=== PATIENT | female | born 2000 | race Caucasian/White ===

== ENCOUNTER 2018-10-04 11:53 | Emergency (ER) | payer SELFPAY ==
[2018-10-04] MEDS ORDERED: ONDANSETRON 4 MG (ODT) TAB ONE (13:18)
[2018-10-04 14:03] LABS: Urine Blood NEGATIVE (NEG); Urine Glucose NEGATIVE (NEG); Urine Protein NEGATIVE (NEG); Urine Specific Gravity 1.015 (1.005-1.030)
--- NOTE | 2018-10-04 14:55 | EDPHYS ---
Physician Documentation [facility] Name: Meghan Mendoza Age: 18 yrs Sex: Female : 2000 Arrival Date: 10/04/2018 Time: 11:57 Bed 9 Private MD: ED Physician Ryan Sawant HPI: 10/04 14:00 This 18 yrs old Female presents to ER via Ambulatory with complaints of kb Vomiting. 14:00 The patient presents to the emergency department with nausea, vomiting. Onset: The kb symptoms/episode began/occurred 2 day(s) ago. Possible causes: unknown. The symptoms are aggravated by nothing. The symptoms are alleviated by nothing. Associated signs and symptoms: Pertinent positives:. Severity of symptoms: At their worst the symptoms were moderate in the emergency department the symptoms are unchanged. 14:42 The patient has not experienced similar symptoms in the past. The patient has not kb recently seen a physician. Pt reports she has been taking her neighbor's buspirone 15mg tid for a few weeks, but ran out about a week ago. Would like a refill of that because it helps her anxiety. . 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 - Social history:: Smoking status: Patient/guardian denies using tobacco. - Ebola Screening: : No symptoms or risks identified at this time. ROS: 14:41 Constitutional: Negative for fever, chills, and weight loss, ENT: Negative for injury, kb pain, and discharge, Neck: Negative for injury, pain, and swelling, Cardiovascular: Negative for chest pain, palpitations, and edema, Respiratory: Negative for shortness of breath, cough, wheezing, and pleuritic chest pain, MS/Extremity: Negative for injury and deformity, Skin: Negative for injury, rash, and discoloration, Neuro: Negative for headache, weakness, numbness, tingling, and seizure. 14:41 Abdomen/GI: Positive for nausea and vomiting, Negative for abdominal pain, diarrhea, constipation, abdominal cramps, abdominal distension, anorexia. Exam: 13:59 Constitutional: This is a well developed, well nourished patient who is awake, alert, kb and in no acute distress. Head/Face: Normocephalic, atraumatic. ENT: Nares patent. No nasal discharge, no septal abnormalities noted. Tympanic membranes are normal and external auditory canals are clear. Oropharynx with no redness, swelling, or masses, exudates, or evidence of obstruction, uvula midline. Mucous membranes moist. Neck: Trachea midline, no thyromegaly or masses palpated, and no cervical lymphadenopathy. Supple, full range of motion without nuchal rigidity, or vertebral point tenderness. No Meningismus. Chest/axilla: Normal chest wall appearance and motion. Nontender with no deformity. No lesions are appreciated. Cardiovascular: Regular rate and rhythm with a normal S1 and S2. No gallops, murmurs, or rubs. Normal PMI, no JVD. No pulse deficits. Respiratory: Lungs have equal breath sounds bilaterally, clear to auscultation and percussion. No rales, rhonchi or wheezes noted. No increased work of breathing, no retractions or nasal flaring. Abdomen/GI: Soft, non-tender, with normal bowel sounds. No distension or tympany. No guarding or rebound. No evidence of tenderness throughout. Skin: Warm, dry with normal turgor. Normal color with no rashes, no lesions, and no evidence of cellulitis. MS/ Extremity: Pulses equal, no cyanosis. Neurovascular intact. Full, normal range of motion. Neuro: Awake and alert, GCS 15, oriented to person, place, time, and situation. Cranial nerves II-XII grossly intact. Motor strength 5/5 in all extremities. Sensory grossly intact. Cerebellar exam normal. Normal gait. Vital Signs: 12:17 BP 129 / 87; Pulse 84; Resp 18; Temp 99.0; Pulse Ox 100% on R/A; ph 13:15 BP 121 / 78 LA Supine; Pulse 72; ss 13:15 BP 123 / 71 Sitting; Pulse 68; ss 13:15 BP 116 / 81 LA Standing; Pulse 86; ss MDM: 12:[address] [facility] 13:59 Data reviewed: vital signs, nurses notes. Data interpreted: Pulse oximetry: on room air kb is 100 %. Interpretation: normal. 14:53 Counseling: I had a detailed discussion with the patient and/or guardian regarding: the kb historical points, exam findings, and any diagnostic results supporting the discharge/admit diagnosis, lab results, the need for outpatient follow up, a family practitioner, to return to the emergency department if symptoms worsen or persist or if there are any questions or concerns that arise at home. 10/04 13:51 Order name: Urine Dipstick--Ancillary (enter results); Complete Time: 14:05 ms 10/04 13:51 Order name: Urine --Ancillary (enter results); Complete Time: 14:05 ms 10/04 14:00 Order name: Flu; Complete Time: 14:53 kb 10/04 14:00 Order name: Strep; Complete Time: 14:53 kb 10/04 14:51 Order name: Throat Culture EDPR 10/04 12:20 Order name: Urine Dipstick-Ancillary (obtain specimen); Complete Time: 13:42 kb 10/04 12:20 Order name: Orthostatics; Complete Time: 13:14 kb Administered Medications: 13:10 Drug: Zofran 4 mg Route: PO; ss 13:42 Follow up: Response: No adverse reaction; Nausea is decreased ss Disposition: 10/05 09:44 Co-signature as Attending Physician, Ryan Sawant MD I agree with the assessment and [facility] plan of care. Disposition: 10/04/18 14:54 Discharged to Home. Impression: Vomiting, unspecified, Anxiety disorder, unspecified. - Condition is Stable. - Discharge Instructions: Nausea and Vomiting, Adult, [id number], Panic Attacks, [id number], Generalized Anxiety Disorder. - Prescriptions for Zofran 4 mg Oral Tablet - take 1 tablet by ORAL route every 6 hours As needed; 20 tablet. - Medication Reconciliation Form, Thank You Letter, Antibiotic Education, Prescription Opioid Use form. - Follow up: Emergency Department; When: As needed; Reason: Worsening of condition. Follow up: Private Physician; When: 2 - 3 days; Reason: Recheck today's complaints, Continuance of care, Re-evaluation by your physician. - Notes: Follow up with [facility] Signatures: [facility] Katelin Ordoñez, MARRY LEAHY-Ryan Lares MD MD cha Smirch, Shelby, RN RN ss Ford, Jacqueline, RN RN ph Corrections: (The following items were deleted from the chart) 10/04 14:00 13:59 Counseling: I had a detailed discussion with the patient and/or guardian josé antonio regarding: the historical points, exam findings, and any diagnostic results supporting the discharge/admit diagnosis, lab results, the need for outpatient follow up, a family practitioner, to return to the emergency department if symptoms worsen or persist or if there are any questions or concerns that arise at home, josé antonio 15:17 14:54 10/04/2018 14:54 Discharged to Home. Impression: Vomiting, unspecified; Anxiety ss disorder, unspecified. Condition is Stable. Forms are Medication Reconciliation Form, Thank You Letter, Antibiotic Education, Prescription Opioid Use. Follow up: Emergency Department; When: As needed; Reason: Worsening of condition. Follow up: Private Physician; When: 2 - 3 days; Reason: Recheck today's complaints, Continuance of care, Re-evaluation by your physician. josé antonio
--- NOTE | 2018-10-04 14:55 | ER ---
Nurse's Notes [facility] Name: Meghan Mendoza Age: 18 yrs Sex: Female : 2000 Arrival Date: 10/04/2018 Time: 11:57 Bed 9 Private MD: Diagnosis: Vomiting, unspecified;Anxiety disorder, unspecified Presentation: 10/04 12:15 Presenting complaint: Patient states: Dizziness, N/V and low grade temp since ph yesterday, denies abdominal pain. Transition of care: patient was not received from another setting of care. Onset of symptoms was October 04, 2018. Risk Assessment: Do you want to hurt yourself or someone else? Patient reports no desire to harm self or others. Initial Sepsis Screen: Does the patient meet any 2 criteria? No. Patient's initial sepsis screen is negative. Does the patient have a suspected source of infection? No. Patient's initial sepsis screen is negative. Care prior to arrival: None. 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 - Social history:: Smoking status: Patient/guardian denies using tobacco. - Ebola Screening: : No symptoms or risks identified at this time. Screenin:15 Abuse screen: Denies threats or abuse. Denies injuries from another. Nutritional ss screening: No deficits noted. Tuberculosis screening: No symptoms or risk factors identified. Never had TB. Fall Risk None identified. Assessment: 12:35 General: Appears in no apparent distress. comfortable, Behavior is calm, cooperative, ss Reports fever for "low grade fever since yesterday". feeling ill for 12-24 hours. Pain: Denies pain. Neuro: Level of Consciousness is awake, alert, obeys commands, Oriented to person, place, time, situation. Cardiovascular: Capillary refill < 3 seconds is brisk in bilateral fingers Patient's skin is warm and dry. Respiratory: Breath sounds are clear bilaterally. Denies pain with respiration, pain with cough, pain with movement. GI: Abdomen is non-distended, Reports nausea, vomiting, began yesterday. : No signs and/or symptoms were reported regarding the genitourinary system. Denies burning with urination, urinary frequency. EENT: Nares are clear Oral mucosa is moist. Throat is clear. Derm: Skin is intact, is healthy with good turgor, Skin is dry, Skin is pink, warm \\T\\ dry. normal. Musculoskeletal: Circulation, motion, and sensation intact. Range of motion: intact in all extremities, Swelling absent. 13:15 Reassessment: Patient appears in no apparent distress at this time. Patient and/or ss family updated on plan of care and expected duration. Pain level reassessed. Patient is alert, oriented x 3, equal unlabored respirations, skin warm/dry/pink. Patient denies pain at this time. 14:10 Reassessment: No changes from previously documented assessment. Patient and/or family ss updated on plan of care and expected duration. Pain level reassessed. Patient is alert, oriented x 3, equal unlabored respirations, skin warm/dry/pink. Vital Signs: 12:17 BP 129 / 87; Pulse 84; Resp 18; Temp 99.0; Pulse Ox 100% on R/A; ph 13:15 BP 121 / 78 LA Supine; Pulse 72; ss 13:15 BP 123 / 71 Sitting; Pulse 68; ss 13:15 BP 116 / 81 LA Standing; Pulse 86; ss ED Course: 11:57 Patient arrived in ED. mr 12:17 Triage completed. ph 12:18 Arm band placed on. ph 12:19 [facility] kb 12:19 Ryan Sawant MD is Attending Physician. kb 13:04 Karen Jefferson RN is Primary Nurse. ss 13:15 Patient has correct armband on for positive identification. Bed in low position. Call ss light in reach. 13:15 Patient maintains SpO2 saturation greater than 95% on room air. ss 14:10 Flu Sent. ss 14:10 Strep Sent. ss 14:40 Strep Sent. ss 14:40 Flu Sent. ss 14:54 Throat Culture Sent. ss 15:16 No provider procedures requiring assistance completed. Patient did not have IV access ss during this emergency room visit. Administered Medications: 13:10 Drug: Zofran 4 mg Route: PO; ss 13:42 Follow up: Response: No adverse reaction; Nausea is decreased ss Outcome: 14:54 Discharge ordered by . josé antonio 15:16 Discharged to home ambulatory. ss 15:16 Condition: good 15:16 Discharge instructions given to patient, Instructed on discharge instructions, follow up and referral plans. medication usage, Demonstrated understanding of instructions, follow-up care, medications. 15:17 Patient left the ED. Signatures: Katelin Ordoñez, MARRY LEAHY-Shauna Lang Shelby, RN RN ss Jacqueline Ford RN RN ph Corrections: (The following items were deleted from the chart) 13:15 13:15 BP 123 / 71; Pulse 68bpm; ss ss
== END 2018-10-04 15:17 | disposition home or self-care (01) ==
LOC: ER 11:53
DX: F41.9 Anxiety disorder, unspecified (principal); F32.9 Major depressive disorder, single episode, unspecified; F31.9 Bipolar disorder, unspecified
CPT/HCPCS: 81003; 81025; 87070; 87081; 87804; 99284